=== PATIENT | male | born 2000 | race Two or more races ===

== ENCOUNTER 2021-04-30 17:16 | Emergency (ER) | payer OTHER, SELFPAY ==
--- NOTE | 2021-04-30 17:26 | ED_ITS ---
HPI - General Adult General Chief complaint: Wound/Laceration Stated complaint: lip laceration Time Seen by Provider: 04/30/21 17:25 Source: patient Mode of arrival: ambulatory Limitations: no limitations History of Present Illness HPI narrative: 20yo male here with upper lip pain after a slip and fall on the ice hitting his upper lip. No loss of consciousness. No headache, vision changes, vomiting, neck pain, dizziness. Tetanus up-to-date Review of Systems Review of Systems: Yes all other systems are reviewed and are negative Constitutional: Constitutional: Reports no additional constitutional complaints, Denies body ache(s), Denies chills, Denies fever(s), Denies headac he(s) and Denies weakness Eyes: Eyes: Reports no additional eye complaints and Denies change in vision ENT: Reports system reviewed and no additional complaints, except as documented, Denies dizziness, Denies headache(s), Reports lip swelling, Denies nasal congestion, Denies nasal discharge and Denies neck pain Cardiovascular: Cardiovascular: Reports no additional cardiovascular complaints, Denies chest pain, Denies leg edema and Denies dyspnea Respiratory: Respiratory: Reports no additional respiratory complaints, Denies cough and Denies dyspnea Gastrointestinal: Gastrointestinal: Reports no additional gastrointestinal complaints, Denies abdominal pain, Denies diarrhea, Denies nausea and Denies vomiting Genitourinary: Genitourinary: Denies urinary incontinence Musculoskeletal: Musculoskeletal: Reports no additional musculoskeletal co mplaints, Denies back pain, Denies arthralgias, Denies joint swelling, Denies neck pain, Denies numbness and Denies tingling Integumentary/Breasts: Skin/Breast: Reports system reviewed and no additional complaints, except as docu and Denies rash Neurologic: Reports system reviewed and no additional complaints, except as documented, Denies Abnormal speech present, Denies dizziness, Denies headache(s), Denies numbness, Denies tingling and Denies weakness Allergic/Immunologic: Allergic/Immunologic: Reports lip swelling PMFSH Past Medical History Attestation statement: The following information was validated with the patient. Source: old records reviewed and nursing notes reviewed Social History Social History Advance Directives: No Advance Directives Information Provided: No Physical Exam 2 Vital Signs: Vital Signs: Last Vital Signs Temp 97.5 F 04/30/21 17:31 Pulse 88 01/23/22 17:31 Resp 16 04/30/21 17:31 BP 143/91 H 04/30/21 17:31 Pulse Ox 100 04/30/21 17:31 BMI result Body Mass Index 27.7 Const: General: cooperative, healthy appearing, comfortable and no acute distress Orientation/consciousness: patient oriented x3 Limitations: no limitations HENMT: Other: No trismus Head: Yes normal to inspection Ears: hearing grossly normal bilaterally and TM's normal bilaterally General nose exam: Normal external nose present Nose image: 1. Swelling with abrasion. No laceration Face and sinus: Yes normal facial exam Mouth: Normal oral and palatal mucosa present Throat: Yes posterior oropharynx normal, Yes tonsils normal and Yes uvula midline Eyes: General: appearance normal, both eyes and all related structures Pupils: Equal, round and reactive pupils present Neck: Neck: Yes normal visual inspection, Yes full ROM, Yes no lymphadenopathy and Yes no meningeal signs Chest: Chest palpation & inspection: normal inspection of the chest Resp: Effort & Inspection: normal respiratory effort Auscultation: clear to auscultation bilaterally Cardio: Rate: regular rate Rhythm: regular rhythm Peripheral pulses: Peripheral pulses 2+ throughout GI: Inspection: Yes normal to inspection Palpation (GI): Soft to palpation and nontender Auscultation: normal bowel sounds Back/Spine/Pelvis: Thoracic/Lumbar Spine: thoracic and lumbar spine normal to inspection Skin: General skin exam: no rashes or lesions noted Neuro: General: patient oriented x3, no meningeal signs, no focal motor deficits and normal sensation to monofilament Cranial nerves: Yes CN's II-XII intact bilaterally, Yes Equal, round and reactive pupils present, Yes Bilater ally intact EOM present, Yes Nystagmus not present, Yes Normal facial strength present and Yes Midline tongue present Cognition (Neuro): normal cognition Speech: No Abnormal speech present Gait exam (Neuro): Normal gait present Motor exam (neuro): 5/5 motor strength present throughout Sensory Exam: Normal double simultaneous stimulation for sensation Extrem: General: Yes normal to inspection Course Course Course Narrative: 20-year-old male here with reports of upper lip swelling after a slip and fall on ice approximately 1 hour prior to arrival. There was no loss consciousness. No neurological deficits or complaints. To the left upper lip there is a local area of swelling with an abrasion. There is no laceration. Recommended supportive care at home with saltwater gargles, topical antibiotic ointment is knees. Reviewed worrisome signs and symptoms of when to return to the emergency department. Comfortable discharge home. Medical Decision Making Medical Records Medical records reviewed: Yes I reviewed the patient's medical records. Lab Data Lab results reviewed: Yes I reviewed the patient's lab results. Discharge Plan Discharge Clinical Impression: Contusion of lip, Abrasion of lip Patient Disposition: Home, Self-Care Instructions: Contusion in Adults (ED), Abrasion (ED), Ice Pack Application (ED) Additional Instructions: Saltwater gargles as tolerated Topical antibiotic ointment as needed Ice to the area as needed Motrin or Tylenol for pain as needed Referrals: Physician,None [Primary Care Provider] - 2 days Interventions: ED Discharge Assessment Last Done: 04/30/21 17:42 Discharge Date/Time: 04/30/21 17:42
[2021-04-30 17:31] VITALS: BP 143/91; PULSE 88; RESP 16; TEMP 36.4; O2SAT 100; BMI 27.7
== END 2021-04-30 17:42 | disposition home or self-care (01) ==
LOC: HO.ED 17:39
PROVIDERS: Emergency Provider Internal Medicine
DX: S00.511A Abrasion of lip, initial encounter (principal); R51.9 Headache, unspecified; W00.0XXA Fall on same level due to ice and snow, initial encounter; Y93.9 Activity, unspecified; Y92.9 Unspecified place or not applicable; Y99.9 Unspecified external cause status
CPT/HCPCS: 99283

== ENCOUNTER 2023-07-04 18:26 | Emergency (ER) | payer OTHER, SELFPAY ==
--- NOTE | ~2023-07-04 | XR_ITS ---
Examination: Left foot and left ankle. Clinical indications: Puncture wound to the mid foot. COMPARISON: None. TECHNIQUE: 3 views left ankle and 3 views left foot. FINDINGS: Left foot: There is no visible bony fracture, dislocation or soft tissue swelling. There is no radiopaque foreign body along the puncture wound in the mid foot region as per patient. Left ankle: The ankle mortise and subtalar joints are normal. The soft tissues are normal. XR/XR ankle LT min 3V IMPRESSION: Unremarkable left foot and left ankle exam. No radiopaque foreign body seen along the puncture wound in the mid foot region. No gas visualized either.
--- NOTE | ~2023-07-04 | XR_ITS ---
Examination: Left foot and left ankle. Clinical indications: Puncture wound to the mid foot. COMPARISON: None. TECHNIQUE: 3 views left ankle and 3 views left foot. FINDINGS: Left foot: There is no visible bony fracture, dislocation or soft tissue swelling. There is no radiopaque foreign body along the puncture wound in the mid foot region as per patient. Left ankle: The ankle mortise and subtalar joints are normal. The soft tissues are normal. XR/XR foot LT min 3V IMPRESSION: Unremarkable left foot and left ankle exam. No radiopaque foreign body seen along the puncture wound in the mid foot region. No gas visualized either.
[2023-07-04 18:46] VITALS: BP 124/85; PULSE 94; RESP 16; TEMP 37.2; O2SAT 100; BMI 21.0
--- NOTE | 2023-07-04 18:46 | ED.SKABFB ---
HPI - Skin/Abscess/Foreign Bdy General Chief complaint: Wound/Laceration Stated complaint: stepped on a nail, bleeding Time Seen by Provider: 07/04/23 19:28 Source: patient, RN notes reviewed and old records reviewed Mode of arrival: ambulatory Limitations: no limitations History of Present Illness HPI narrative: 22-year-old male presents for evaluation of a puncture wound to the bottom of his left foot. He reports he was cleaning his room when he accidentally stepped on a nail that punctured the bottom of his left foot Your remove the nail, unsure of his last tetanus It bled but he was able to stop it with a sock alone He denies any other injuries Related Data Previous Rx's Medication Instructions Recorded cephalexin 500 mg capsule 500 mg PO QID #12 caps 07/04/23 Allergies Allergy/AdvReac Type Severity Reaction Status Date / Time No Known Allergies Allergy Verified 07/04/23 18:46 Review of Systems Constitutional: Constitutional: Denies chills and Denies fever(s) Integumentary/Breasts: Skin/Breast: Reports wounds PMFSH Social History Social History Advance Directives: No Advance Directives Information Provided: No Physical Exam Vital Signs: Vital Signs: Last Vital Signs Temp 99.5 F 07/04/23 19:31 Pulse 70 07/04/23 19:31 Resp 12 07/04/23 19:31 BP 117/68 07/04/23 19:31 Pulse Ox 100 07/04/23 19:31 O2 Del Method Room Air 07/04/23 19:31 BMI result Body Mass Index 21.0 Skin: Other: Patient has a pinpoint puncture wound just anterior to the calcaneus on the plantar surface of the left foot. There is some dried blood with no active bleeding Course Course Course Narrative: RME:?22 yo male here for eval of wound to left foot after stepping on a nail while cleaning his room. he was wearing socks at the time. he is unsure if his tetanus is UTD. immediately removed the nail, covered the wound and came to ED. denies fever, chills, n/v. 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 puncture wound to plantar aspect of left foot. xr and tdap ordered. Full HPI, ROS and PE to be performed by the primary ED provider. Medications Administered Discontinued Medications Generic Name Dose Route Start Last Admin Trade Name Freq PRN Reason Stop Dose Admin Diphtheria/Tetanus/Acell Pertussis 0.5 ml 07/04/23 18:55 07/04/23 19:35 Diphth,Pertus(Acell),Tet Adult 0.5 Ml Syringe IM 07/04/23 18:56 0.5 ml .ONCE ONE Administration Medical Decision Making Medical Decision Making [facility] Narrative: Patient has a small puncture wound, tetanus was updated. There was no osseous injury. Patient's foot was soaked in Betadine saline. And he is stable for discharge. We will discharge the patient with a short course of cephalexin for prophylaxis. He was not wearing a shoe and does not require Pseudomonas coverage Differential Diagnosis Differential Diagnoses: The differential diagnosis associated with the presentation includes Puncture wound Cellulitis Laceration Foreign body Independent Interpretation I performed an independent interpretation of an: Plain X-Ray (No radiopaque foreign body or gas visible to the left foot. No osseous abnormality) Radiology Impression Discussion of test interpretation with radiology: I have reviewed the radiologist's reading. Radiologist Impression: Unremarkable left foot and left ankle exam. No radiopaque foreign body seen along the puncture wound in the mid foot region. No gas visualized either. Discharge Plan Discharge Clinical Impression: Puncture wound Patient Disposition: Home, Self-Care Instructions: Puncture Wound (ED) Additional Instructions: Your tetanus was updated today. Your x-ray did not show any evidence of foreign body or fracture Take cephalexin 4 times daily for the next 3 days to prevent infection Follow-up your primary doctor Return for new or worsening symptoms Prescriptions: New cephalexin 500 mg capsule 500 mg PO QID Qty: 12 0RF
[2023-07-04 19:31] VITALS: BP 117/68; PULSE 70; RESP 12; TEMP 37.5; O2SAT 100
[2023-07-04] MEDS: Diphth,Pertus(ACell),Tet Adult 0.5 ML SYRINGE IM (19:35)
[2023-07-04 20:21] VITALS: BP 117/68; PULSE 70; RESP 12; TEMP 37.5; O2SAT 100
== END 2023-07-04 20:22 | disposition home or self-care (01) ==
PROVIDERS: Emergency Provider Emergency Medicine
DX: S91.332A Puncture wound without foreign body, left foot, initial encounter (principal); W45.0XXA Nail entering through skin, initial encounter; Y93.E9 Activity, other interior property and clothing maintenance; Y92.9 Unspecified place or not applicable; Y99.9 Unspecified external cause status
CPT/HCPCS: 73610; 73630; 90471; 90715; 99283; 99284

== ENCOUNTER 2023-09-09 19:57 | Emergency (ER) | payer OTHER, SELFPAY ==
--- NOTE | ~2023-09-09 | XR_ITS ---
EXAMINATION: XR ANKLE, RIGHT CLINICAL INFORMATION: Pain status-post injury. COMPARISON: None. TECHNIQUE: AP, lateral, and mortise views of the right ankle. FINDINGS: Bony alignment and mineralization are normal. The ankle mortise is intact. No fracture, dislocation or right ankle joint effusion is seen. Boehler's angle is normal. There is no calcaneal spur. There is mild soft tissue swelling adjacent to the lateral malleolus. No focal soft tissue swelling, gas or foreign body is seen. XR/XR ankle RT min 3V IMPRESSION: 1. No fracture, dislocation or right ankle joint effusion is seen. 2. There is mild soft tissue swelling adjacent to the right lateral malleolus.
[2023-09-09 20:14] VITALS: BP 136/71; PULSE 69; RESP 20; TEMP 36.7; O2SAT 100; BMI 21.5
== END 2023-09-10 02:00 | disposition left against medical advice (07) ==
LOC: HO.ED 09-10 01:50
PROVIDERS: Emergency Provider Emergency Medicine
DX: S99.911A Unspecified injury of right ankle, initial encounter (principal); X58.XXXA Exposure to other specified factors, initial encounter; Y93.9 Activity, unspecified; Y92.9 Unspecified place or not applicable; Y99.9 Unspecified external cause status
CPT/HCPCS: 73610; 99281; 99283

== ENCOUNTER 2025-03-03 16:43 | Emergency (ER) | payer MEDICAID, SELFPAY ==
[2025-03-03 16:53] VITALS: BP 126/85; PULSE 62; RESP 16; TEMP 36.8; O2SAT 95; BMI 22.6
--- NOTE | 2025-03-03 17:01 | PC.NURSE ---
Patient presented to ED via ems from home. Patient reported being in the shower when his nose started bleeding. Shortly after his nose was bleeding, he began coughing up blood. Blood in emesis bag noted to be liquid with no blood clots. VSS.
--- NOTE | 2025-03-03 17:20 | ED.EPISTAXIS ---
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 States was bleeding for about 20 minutes, then stopped prior to EMS arrival. Admits to coughing up blood after episode. Reports symptomatic improvement at present. Does report mild URI symptoms. Denies anticoagulation use, lightheadedness/dizziness, sore throat. Related Data Previous Rx's ?Medication ?Instructions ?Recorded cephalexin 500 mg capsule 500 mg PO QID #12 caps 07/04/23 Allergies Allergy/AdvReac Type Severity Reaction Status Date / Time bereket Allergy Rash Verified 03/03/25 16:55 seafood Allergy Anaphylaxis Verified 03/03/25 16:55 Review of Systems Review of Systems: Yes all other systems are reviewed and are negative Constitutional: Constitutional: Reports as per [facility] Past Medical History Attestation statement: The following information was validated with the patient. Source: old records reviewed Social History Social History Advance Directives: No Advance Directives Information Provided: No Physical Exam Vital Signs: Vital Signs: Last Vital Signs Temp 98.0 F 03/03/25 18:29 Pulse 59 03/03/25 18:29 Resp 16 03/03/25 18:29 BP 122/72 03/03/25 18:29 Pulse Ox 100 03/03/25 18:29 O2 Del Method Room Air 03/03/25 18:29 BMI result Body Mass Index 22.6 Const: General: cooperative, healthy appearing and no acute distress Orientation/consciousness: patient oriented x3 Limitations: no limitations HEENT: Other: No active bleeding. No septal hematoma. Head: Yes normal to inspection and Yes atraumatic Ears: hearing grossly normal bilaterally General nose exam: Normal external nose present and no epistaxis Face and sinus: Yes normal facial exam Mouth: Normal oral and palatal mucosa present Eyes: General: appearance normal, both eyes and all related structures EOM: EOMs intact bilaterally Neck: Neck: Yes normal visual inspection and Yes no meningeal signs Resp: Effort & Inspection: normal respiratory effort and no respiratory distress Cardio: Rate: regular rate Skin: Rashes: no rashes Wounds: no wounds Neuro: General: patient oriented x3, tone normal and no meningeal signs Cranial nerves: Yes CN's II-XII intact bilaterally Gait exam (Neuro): Normal gait present Extrem: General: Yes normal to inspection Course Course Course Narrative: COVID/FLU/RSV negative > no epistaxsis since ED arrival Results discussed with patient including worrisome signs and symptoms and strict return precautions, and when to return to the emergency department. They verbalized understanding and feel safe for discharge at this time. 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 On exam vital signs stable, NAD, nontoxic appearing, no active epistaxis. No septal hematoma. Talking in complete sentences. Concern for epistaxis. Low suspicion for anemia or PE or pneumonia Plan: Viral testing, observe for re-bleed Please refer to course for remaining clinical decision making, interpretation of labs/imaging results, and discussions with consultants and/or family members. Differential Diagnosis Differential Diagnoses: The differential diagnosis associated with the presentation includes As above Lab Data [facility] Lab Attestation statement: I reviewed the patient's lab results. Labs: Lab Results 03/03/25 Range/Units 17:32 Influenza Type A (PCR) NEGATIVE (Negative) Influenza Type B (PCR) NEGATIVE (Negative) RSV RNA Qual (PCR) NEGATIVE (Negative) SARS-CoV-2 RNA (RT-PCR) NEGATIVE (Negative) Independent Historian Clinical information obtained from an independent historian. History obtained from or confirmed by: EMS External Record Review External record reviewed: Inpatient record, Office record, Outpatient record, Prior outpatient labs, Prior outpatient radiology, Primary care record and Outside ED record Tests considered The following testing was considered but not selected: As above Prescription Management I considered prescription management with: Other Chronic Conditions Patient?s care impacted by: Other Social Determinants Patient?s care significantly limited by Social Determinants of Health including: Problems related to primary support group Discharge Plan Discharge Clinical Impression: Epistaxis Patient Disposition: Home, Self-Care Instructions: Nosebleed (ED) Additional Instructions: You tested negative for COVID, flu, RSV If your nosebleed recurs hold direct pressure for 15 minutes without letting go. If you still bleed after this return to the emergency department Avoid blowing your nose, picking your nose. Use humidifier Prescriptions: No Action cephalexin 500 mg capsule 500 mg PO QID Qty: 12 0RF Referrals: Physician,None [Primary Care Provider, Medical] - 5 days Interventions: ED Discharge Assessment Last Done: 03/03/25 18:29 Discharge Date/Time: 03/03/25 18:30 Print Language: Hungarian
--- OUTSIDE RECORDS SUMMARY | 2025-03-03 18:00 | XMS_ITS | Encounter Summary ---
Author Organization [facility] Address [address] [place], [place] [id number] Phone Care Team Providers Care Skin Diving Teacher Name Role Phone Luisana Gonzalez MD Primary Care Provider [phone] Encounter Details Date Type Department Care Team (Late st Contact Info) Description 11/22/2016 Conversion Encounter [facility] [address] [address] [place] [address] Social History Tobacco Use Types Packs/Day Years Used Date Smoking Tobacco: Never Comments:Never smoker Sex and Gender Information Value Date Recorded Sex Assigned at Not on file Legal Sex Male 4:57 PM EDT Gender Identity Not on file Sexual Orientation Not on file documented as of this encounter Plan of Treatment Not on file documented as of this encounter Visit Diagnoses Not on filedocumented in this encounter Care Teams Skin Diving Teacher Relationship Specialty Start Date End Date Luisana Gonzalez MD [address] [place] [address] PCP - General 11/16/16 06/20/22 documented as of this encounter
--- OUTSIDE RECORDS SUMMARY | 2025-03-03 18:00 | XMS_ITS | Clinical Summary ---
Author Organization [facility] Address [address] [place] [id number] Phone Care Team Providers Care Picker Packer Name Role Phone Unavailable Primary Care Provider Unavailabl e Allergies Active Allergy Reactions Criticality Noted Date Comments Insect Extract 01/07/2018 Medications PROAIR HFA 108 (90 BASE) MCG/ACT inhaler INHALE 2 PUFFS EVERY 4 TO 6 HOURS NEEDED 0 7 Active EPIPEN 2-MEGA 0.3 MG/0.3ML injection syringe See admin instructions. 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 patient with visual & auditory hallucinations Allergic rhinitis due to pollen Overview (01/07/2018): claritin prn. Sees Dr Davis Assessment & Plan (01/07/2018 2:40 PM EDT): Claritin as needed Gets allergy shots q 2 weeks - no notes from ramp service agent. Pt allergic to lots of things per stepdad Intermittent asthma Overview (01/07/2018): proair prn. Used Flovent in past but not in years Assessment & Plan (01/07/2018 2:23 PM EDT): Has albuterol inhaler just in case but rarely uses Immunizations Immunization Administration Dates Next Due DTaP 5 11/27/2004, 3,07/01/2001,05/08,03/05/2001 H1N1 05/04/2009,02/28/2009 HPV, Quadrivalent 10/05/2013,11/03/2012,09/03/19 13 Hep A, ped/adol 10/12/2014,10/05/2013 Hep B, ped/adol 09/16/2001,2000,2000 Hib (PRP-T) 03/02/2002, 2,05/08/2001,03/05 IPV 11/27/2004, 2,05/08/2001,03/05 Influenza Split 12/14/2010,03/22/2010 Influenza, injectable, quadrivalent 02/07/2016 Influenza, injectable, quadr ivalent, preservative free 01/07/2018,12/20/2016 Influenza, injectable, trivalent 010,01/30/2008,05/01/2007,03/29 MMR 11/27/2004,11/27/2001 Meningococcal B Trumenba 07/10/2018,01/07/2018 Meningococcal Conj (Menactra) MCV4P 01/07/2018,0 09/02/2012 Pneumococcal Conjugate 11/30/2002,2001,05/08/2001,03/05 Tdap 09/02/2012 Varicella 06/03/2008,11/27/2001 Family History * Patient is adopted Medical History Relation Name Comments Seizures Father Relation Name Status Comments Father Alive Mother Alive Social History Tobacco Use Types Packs/Day Years Used Date Smoking Tobacco: Never Smokeless Tobacco: Never Comments:Never smoker Alcohol Use Standard Drinks/Week Comments No 0 (1 standard drink = 0.6 oz pur e alcohol) Sex and Gender Information Value Date Recorded Sex Assigned at Not on file Legal Sex Male 4:57 PM EDT Gender Identity Not on file Sexual Orientation Not on file Last Filed Vital Signs Vital Sign Reading Time Taken Comments Blood Pressure 135/78 01/09/2018 4:22 PM EDT Pulse 102 01/09/2018 4:22 PM EDT Temperature 39.3 C (102.8 F) 01/09/2018 4:22 PM EDT Respiratory Rate - - Oxygen Saturation - - Inhaled Oxygen Concentration - - Weight 58.2 kg (128 lb 6.4 oz) 01/09/2018 4:22 P M EDT Height 165.1 cm (5' 5 ) 01/07/2018 1:53 PM EDT Body Mass Index 21.37 01/07/2018 1:53 PM EDT Plan of Treatment Health Maintenance Due Date Last Done Comments DTaP,Tdap,and Td Vaccines (7 - Td or Tdap) 09/02/2022 09/02/2012, 11/27/2004, 05/28/2002, Additional history exists Influenza Vaccines (#1) 2024 01/08/20 18, 12/20/2016, 02/07/2016, Additional history exists COVID-19 Vaccine (2024-2 6 season) 2024 Hepatitis B Vaccines Completed 09/16/2001, 2000, 2000 HIB Vaccines Completed 03/02/2002, 06/07, 05/08/2001, Additional history exists Pneumococcal Vaccine Completed 11/30/2002, 07/01/2001, 05/08/2001, Additional history exists IPV Vaccines Completed 11/27/2004, 06/07, 05/08/2001, Additional history exists MMR Vaccines Completed 11/27/2004, 11/27/2001 Varicella Vaccines Completed 06/03/2008, 11/27/2001 HPV Vaccines Completed 10/05/2013, 10/07, 09/02/2012 Hepatitis A Vaccines Completed 10/12/2014, 10/06/19 14 Meningococcal Vaccine Completed 01/07/2018, 013 Men B Vaccine Completed 07/10/2018, 01/07/2018 Insurance [facility] [place] PCC
--- OUTSIDE RECORDS SUMMARY | 2025-03-03 18:00 | XMS_ITS | Clinical Summary ---
Author Organization [employer] 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 Role Phone Unavailable Primary Care Provider Unavailabl e Social History Tobacco Use Types Packs/Day Years Used Date Smoking Tobacco: Never Assessed Sex and Gender Information Value Date Recorded Sex Assigned at Male 02/05/2022 10:23 AM EDT Legal Sex Male 10:23 AM EDT Gender Identity Male 02/05/2022 10:23 AM EDT Sexual Orientation Choose not to disclose 2021 10:23 AM EDT Plan of Treatment Health Maintenance Due Date Last Done Comments Depression Screening 2000 HIV Screening 2000 SDOH Screening 2000 Disability Screening 2000 Alcohol/Substance Use Screening 2012 Tobacco Screening 2012 Hepatitis A Vaccines (2 of 2 - 2-dose series) 04/14/2015 10/12/2014 Family Planning (PISQ) 11/27/2015 HPV Vaccines (1 - Male 3-dos e series) 11/27/2015 Hepatitis C Screening 2018 Hepatitis B Vaccines (1 of 3 - 19+ 3-dose series) 11/27/2019 COVID-19 Vaccine (3 - 2024-2 6 season) 2024 09/13/2020, 08/16/2020 Influenza Vaccine (#1) 2024 8, 12/20/2016, 02/07/2016 DTaP/Tdap/Td Vaccines (2 - T d or Tdap) 07/03/2033 07/04/2023 Zoster Vaccines (1 of 2) 2050 RSV Patients and Patients Aged 60 years or older (1 - 1-dose 75+ series) 11/27/2075 Meningococcal Vaccine Completed 01/07/2018 Meningococcal B Vaccine Completed 07/11/19 19, 01/07/2018 HIB Vaccines Aged Out No longer eligi ble based on patient's age to complete this topic IPV Vaccines Aged Out No longer eligi ble based on patient's age to complete this topic Pneumococcal Vaccine: Pediatrics (0 to 5 Years) and At-Risk Patients (6 to 49) Years Aged Out No longer eligible b ased on patient's age to complete this topic RSV under 20 months Aged Out No longe r eligible based on patient's age to complete this topic Rotavirus Vaccines Aged Out No longer eligible based on patient's age to complete this topic [facility]
[2025-03-03 18:02] VITALS: BP 121/80; PULSE 67; RESP 16; TEMP 36.7; O2SAT 96
[2025-03-03 18:13] LABS: Resp Syncy Virus RNA Qual PCR NEGATIVE (Negative); SARS COV2 PCR INHOUSE NEGATIVE (Negative)
[2025-03-03 18:29] VITALS: BP 122/72; PULSE 59; RESP 16; TEMP 36.7; O2SAT 100
== END 2025-03-03 18:30 | disposition home or self-care (01) ==
PROVIDERS: Physician Assistant; Emergency Provider Student in an Organized Health Care Education/Training Program
DX: R04.0 Epistaxis (principal); Z91.013 Allergy to seafood; Z91.018 Allergy to other foods
CPT/HCPCS: 87637; 99283